=== PATIENT | male | born 2005 | race Caucasian/White ===

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

== ENCOUNTER → 2023-04-21 | Emergency (ER) | payer OTHER ==
--- OUTSIDE RECORDS SUMMARY | 2023-04-21 14:01 | XMS REPORT | Continuity of Care Document ---
Author Name Unknown Address [address] [facility] [address] [place] [address] [facility] thconnect Address [address] [facility] [address] [place] [address] Care Team Providers Care House Worker General Name Role Phone PCP, PATIENT DOES NOT HAVE A Primary Care Physic andrés Unavailable ARAMIS HERNANDEZ Attending Clinician Bernadette harlanilaJERRELL Ojeda Attending Clinician Unavailable Aramis Hernandez MD Attending Clinician ARAMIS HERNANDEZ Admitting Clinician Bernadette vailable Payers Payer Name Policy Type Policy Number Effective Date Expirati on Date Source [employer] [id number] 2022 00:00:00 Allergies, Adverse Reactions, Alerts Allergy Name Allergy Type Status Severity Reaction(s) Onset Date Inactive Date Treating Clinician Comments Source Lidocain e Propensi ty to adverse reaction s Active Itching 07-30 00:00: 00 [facility] LIDOCAIN E DRUG INGREDI Active ITCHING 07-30 00:00: 00 [facility] NO KNOWN ALLERGIE S Drug Class Active [facility] Social History Social Habit Start Date Stop Date Quantity Comments Source Exposure to SARS-CoV-2 (event) 2022-08-09 00:00:00 2022-08-19 14:35:00 Not sure [facility] Tobacco use and exposure 2022-08-19 00:00:00 2022-08-19 00:00:00 Smokeless tobacco non-user [facility] Sex Assigned At 2005 00:00:00 2005 00:00:00 [facility] Smoking Status Start Date Stop Date Source Tobacco smoking consumption unknown [facility] Never smoked tobacco [facility] Vital Signs Vital Name Observation Time Observation Value Comments S sheila Systolic blood pressure 2022-08-19 19:42:00 123 mm[Hg] [facility] Diastolic blood pressure 2022-08-19 19:42:00 65 mm[Hg] [facility] Heart rate 2022-08-19 19:42:00 80 /min [facility] Body temperature 2022-08-19 19:42:00 36.39 Estela [facility] Body height 2022-08-19 19:42:00 190.5 cm [facility] Body weight 2022-08-19 19:42:00 95.119 kg [facility] BMI 2022-08-19 19:42:00 26.21 kg/m2 [facility] Body mass index (BMI) [Percentile] Per age and sex 2022-08-19 19:42:00 84.87 % [facility] Systolic blood pressure 2022-07-30 12:33:00 128 mm[Hg] [facility] Diastolic blood pressure 2022-07-30 12:33:00 73 mm[Hg] [facility] Heart rate 2022-07-30 12:33:00 97 /min [facility] Body temperature 2022-07-30 12:33:00 35.78 Estela [facility] Body height 2022-07-30 12:33:00 190.5 cm [facility] Body weight 2022-07-30 12:33:00 97.523 kg [facility] BMI 2022-07-30 12:33:00 26.87 kg/m2 [facility] Body mass index (BMI) [Percentile] Per age and sex 2022-07-30 12:33:00 88.03 % [facility] Procedures Procedure Date / Time Performed Performing Clinicia n Source XR KNEE 4+ VW RIGHT 2022-07-30 12:44:10 Aramis Hernandez [facility] Encounters Start Date/Time End Date/Time Encounter Type Admission Type Attending [facility] Care Department Encounter ID Source 2022-11-18 15:00:00 2022-11-18 15:00:00 Outpatient ARAMIS CHATMAN [facility] [id number] [facility] 2022-09-30 10:40:00 2022-09-30 10:40:00 Outpatient ARAMIS CHATMAN [facility] [id number] [facility] 2022-09-15 15:15:00 2022-09-15 15:15:00 Outpatient JERRELL BIGGS [facility] [id number] [facility] 2022-08-19 15:00:00 2022-08-19 15:04:05 Outpatient ARAMIS CHATMAN [facility] [id number] [facility] 2022-08-19 15:00:00 2022-08-19 15:04:05 Office Visit Aramis Hernandez [facility] [place] [facility] .[id number] [facility] 2022-08-08 11:55:41 2022-08-08 23:59:00 Outpatient ARAMIS CHATMAN [facility] [id number] [facility] 2022-08-08 11:55:41 2022-08-08 23:59:00 Hospital Encounter Aramis Hernandez [facility] [place] [facility] .[id number] [facility] 2022-08-08 00:00:00 2022-08-08 00:00:00 Telephone Aramis Hernandez [facility] [place] [facility] .[id number] [id number] [facility] 2022-07-30 07:36:15 2022-07-30 23:59:00 Outpatient ARAMIS CHATMAN [facility] [id number] [facility] 2022-07-30 07:36:15 2022-07-30 23:59:00 Hospital Encounter Aramis Hernandez [facility] [place] [facility] [id number] [facility] 2022-07-30 07:50:00 2022-07-30 08:10:20 Office Visit Aramis Hernandez [facility] [place] [facility] [id number] [facility] 2022-07-30 00:00:00 2022-07-30 00:00:00 Letter (Out) Aramis Hernandez [facility] [place] [facility] [id number] [facility]
--- NOTE | 2023-04-21 15:24 | RAD REPORT ---
EXAM DESCRIPTION: RAD - Elbow Left 3 View - 04/21/2023 2:48 pm CLINICAL HISTORY: PAIN COMPARISON: No comparisons TECHNIQUE: Left elbow, 3 views. FINDINGS: No fracture is identified. No elevated posterior fat pad to suggest an effusion. There is no dislocation or periosteal reaction noted. No foreign body or other soft tissue abnormalit y. IMPRESSION: Negative left elbow examination.
--- NOTE | 2023-04-21 15:43 | EDPHYS ---
Physician Documentation [facility] Name: Liu Smith Age: 17 yrs Sex: Male : 2005 Arrival Date: 04/21/2023 Time: 13:58 Bed 18 Private MD: ED Physician Hemanth Esparza HPI: 04/21 14:26 This 17 yrs old Male presents to ER via Ambulatory with complaints of Elbow ec2 Injury - Left. 14:26 Patient arrives today for evaluation of left elbow pain. States that he was at work, ec2 lifting a heavy object and subsequently felt pain in the left elbow. Patient reports no falls or injuries, denies trauma. Patient reports no swelling at the area. . Historical: - Allergies: 14:11 Lidocaine; ll1 - PMHx: 14:11 None; ll1 - PSHx: 14:11 None; ll1 - Immunization history:: Adult Immunizations up to date. - Social history:: Smoking status: Patient/guardian denies using tobacco. ROS: 14:26 Constitutional: as per hpi ec2 Exam: 14:26 Constitutional: GEN: NAD Head: atraumatic Eyes: EOMI Ears: External ears are ec2 normal. CV: regular rate LUNGS: no respiratory distress ABD: non-distended SKIN: no evidence of rashes MSK: no evidence of trauma, left elbow TTP, no significant swelling, no erythema, no warmth, range of motion limited to about 170 degrees, intact distal neurovascular status NEURO: moves all extremities equally Vital Signs: 14:11 BP 130 / 68; Pulse 100; Resp 17; Temp 98.2; Pulse Ox 99% ; Weight 99.79 kg; Height 6 ll1 ft. 2 in. ; Pain 4/10; 14:11 Body Mass Index 28.25 (99.79 kg, 187.96 cm) - Percentile 90.9 % ll1 14:11 Pain Scale: Adult ll1 MDM: 14:26 Data reviewed: vital signs. ED course: Patient arrives today for evaluation of left ec2 elbow pain. Examination remarkable for MSK findings as noted above. Will obtain radiographs of the left elbow, will treat the patient's pain with Toradol.. 14:35 Patient medically screened. ec2 15:38 ED course: Elbow x-ray independently reviewed and interpreted by me, shows no acute ec2 traumatic process. Will discharge home, instructed on [id number] medications. Return precautions given. 04/21 14:16 Order name: Elbow Left 3 View XRAY; Complete Time: 15:38 ec2 04/21 15:41 Order name: Sling; Complete Time: 15:59 ec2 Administered Medications: 15:41 CANCELLED (Physician Discretion): [id number] mg IM once ec2 Disposition Summary: 04/21/23 15:42 Discharge Ordered Notes: Location: Home ec2 Condition: Stable ec2 Diagnosis - Unspecified sprain of left elbow, initial encounter ec2 Followup: ec2 - With: Private Physician - When: - Reason: Re-evaluation by your physician Discharge Instructions: - Discharge Summary Sheet ec2 - Elbow Sprain ec2 Forms: - Work release form ec2 - Medication Reconciliation Form ec2 - Thank You Letter ec2 - Antibiotic Education ec2 - Prescription Opioid Use ec2 - Patient Portal Instructions ec2 - Leadership Thank You Letter ec2 Signatures: Dispatcher [employer] Dede Raman RN RN 1 Hemanth Esparza MD MD ec2 Corrections: (The following items were deleted from the chart) 15:41 14:24 Ketorolac IM 30 mg IM once ordered. ec2 ec2
--- NOTE | 2023-04-21 15:43 | ER ---
Nurse's Notes [facility] Name: Liu Smith Age: 17 yrs Sex: Male : 2005 Arrival Date: 04/21/2023 Time: 13:58 Bed 18 Private MD: Diagnosis: Unspecified sprain of left elbow, initial encounter Presentation: 04/21 14:11 Chief complaint: Patient states: Picked up a bucket this morning and felt a pop L ll1 elbow. Limited ROM and pain since. Coronavirus screen: Client denies travel out of the [place] in the last 14 days. At this time, the client does not indicate any symptoms associated with coronavirus-19. Ebola Screen: Patient denies travel to an Ebola-affected area in the 21 days before illness onset. Initial Sepsis Screen: Does the patient meet any 2 criteria? No. Patient's initial sepsis screen is negative. Does the patient have a suspected source of infection? Yes: Bone or joint infection. Risk Assessment: Do you want to hurt yourself or someone else? Patient reports no desire to harm self or others. Onset of symptoms was April 21, 2023. 14:11 Method Of Arrival: Ambulatory ll1 14:11 Acuity: YOSSI 4 ll1 Triage Assessment: 14:12 General: Appears uncomfortable, Behavior is calm, cooperative, appropriate for age. ll1 Pain: Complains of pain in L elbow. Musculoskeletal: Circulation, motion, and sensation intact. Capillary refill < 3 seconds. Injury Description: Bruise. Historical: - Allergies: 14:11 Lidocaine; ll1 - PMHx: 14:11 None; ll1 - PSHx: 14:11 None; ll1 - Immunization history:: Adult Immunizations up to date. - Social history:: Smoking status: Patient/guardian denies using tobacco. Vital Signs: 14:11 BP 130 / 68; Pulse 100; Resp 17; Temp 98.2; Pulse Ox 99% ; Weight 99.79 kg; Height 6 ll1 ft. 2 in. ; Pain 4/10; 14:11 Body Mass Index 28.25 (99.79 kg, 187.96 cm) - Percentile 90.9 % ll1 14:11 Pain Scale: Adult ll1 ED Course: 14:01 Patient arrived in ED. ra3 14:04 Hemanth Esparza MD is Attending Physician. ec2 14:12 Triage completed. ll1 14:12 Arm band placed on. ll1 14:49 Elbow Left 3 View XRAY In Process Unspecified. EDMS 15:42 Sachin Wilkes, RN is Primary Nurse. bp Administered Medications: 15:41 CANCELLED (Physician Discretion): [id number] mg IM once ec2 Outcome: 15:42 Discharge ordered by MD. ec2 16:11 Patient left the ED. bp Signatures: Dispatcher [employer] EDNE Sachin Wilkes, RN RN Dede Hall RN RN 1 Hemanth Esparza MD MD ec2 Mily Samuels 3
[2023-04-21 18:50] VITALS: BP 130/68; TEMP 98.2; O2SAT 99
== END ==
LOC: ER 13:58
DX: S53.402A Unspecified sprain of left elbow, initial encounter (principal)
CPT/HCPCS: 99281

== ENCOUNTER → 2023-07-10 | Emergency (ER) | payer OTHER, SELFPAY ==
--- OUTSIDE RECORDS SUMMARY | 2023-07-10 00:33 | XMS REPORT | Continuity of Care Document ---
Author Name Unknown Address [address] [facility] [address] [place] [address] [facility] thconnect Address [address] [facility] [address] [place] [address] Care Team Providers Care Pulmonary Function Technologist Name Role Phone PCP, PATIENT DOES NOT HAVE A Primary Care Physic andrés Unavailable ARAMIS HERNANDEZ Attending Clinician Bernadette JERRELL Reyna Attending Clinician Unavailable Aramis Hernandez MD Attending Clinician ARAMIS HERNANDEZ Admitting Clinician Bernadette jose Payers Payer Name Policy Type Policy Number Effective Date Expirati on Date Source [employer] [id number] 2022 00:00:00 Allergies, Adverse Reactions, Alerts Allergy Name Allergy Type Status Severity Reaction(s) Onset Date Inactive Date Treating Clinician Comments Source Lidocain e Propensi ty to adverse reaction s Active Itching 07-30 00:00: 00 [facility] LIDOCAIN E DRUG INGREDI Active ITCHING 07-30 00:00: 00 [facility] NO KNOWN ALLERGIE S Drug Class Active [facility] Social History Social Habit Start Date Stop Date Quantity Comments Source Exposure to SARS-CoV-2 (event) 2022-08-09 00:00:00 2022-08-19 14:35:00 Not sure [facility] Tobacco use and exposure 2022-08-19 00:00:00 2022-08-19 00:00:00 Smokeless tobacco non-user [facility] Sex Assigned At 2005 00:00:00 2005 00:00:00 [facility] Smoking Status Start Date Stop Date Source Tobacco smoking consumption unknown [facility] Never smoked tobacco [facility] Vital Signs Vital Name Observation Time Observation Value Ileana sosa Systolic blood pressure 2022-08-19 19:42:00 123 mm[Hg] [facility] Diastolic blood pressure 2022-08-19 19:42:00 65 mm[Hg] [facility] Heart rate 2022-08-19 19:42:00 80 /min [facility] Body temperature 2022-08-19 19:42:00 36.39 Estela [facility] Body height 2022-08-19 19:42:00 190.5 cm [facility] Body weight 2022-08-19 19:42:00 95.119 kg [facility] BMI 2022-08-19 19:42:00 26.21 kg/m2 [facility] Body mass index (BMI) [Percentile] Per age and sex 2022-08-19 19:42:00 84.87 % [facility] Systolic blood pressure 2022-07-30 12:33:00 128 mm[Hg] [facility] Diastolic blood pressure 2022-07-30 12:33:00 73 mm[Hg] [facility] Heart rate 2022-07-30 12:33:00 97 /min [facility] Body temperature 2022-07-30 12:33:00 35.78 Estela [facility] Body height 2022-07-30 12:33:00 190.5 cm [facility] Body weight 2022-07-30 12:33:00 97.523 kg [facility] BMI 2022-07-30 12:33:00 26.87 kg/m2 [facility] Body mass index (BMI) [Percentile] Per age and sex 2022-07-30 12:33:00 88.03 % [facility] Procedures Procedure Date / Time Performed Performing Clinicia n Source XR KNEE 4+ VW RIGHT 2022-07-30 12:44:10 Aramis Hernandez [facility] Encounters Start Date/Time End Date/Time Encounter Type Admission Type Attending [facility] Facility Care Department Encounter ID Source 2022-11-18 15:00:00 2022-11-18 15:00:00 Outpatient ARAMIS CHATMAN [facility] [id number] [facility] 2022-09-30 10:40:00 2022-09-30 10:40:00 Outpatient ARAMIS CHATMAN [facility] [id number] [facility] 2022-09-15 15:15:00 2022-09-15 15:15:00 Outpatient JERRELL BIGGS [facility] [id number] [facility] 2022-08-19 15:00:00 2022-08-19 15:04:05 Outpatient ARAMIS CHATMAN [facility] [id number] [facility] 2022-08-19 15:00:00 2022-08-19 15:04:05 Office Visit Aramis Hernandez [facility] [place] [facility] [id number] [id number] [id number] [id number] [facility] 2022-08-08 11:55:41 2022-08-08 23:59:00 Outpatient ARAMIS CHATMAN [facility] [id number] [facility] 2022-08-08 11:55:41 2022-08-08 23:59:00 Hospital Encounter Aramis Hernandez [facility] [place] [facility] .2.840.114 [id number] [id number] [id number] [facility] 2022-08-08 00:00:00 2022-08-08 00:00:00 Telephone Aramis Hernandez [facility] [place] [facility] 2.840.114 [id number] [id number] [id number] [facility] 2022-07-30 07:36:15 2022-07-30 23:59:00 Outpatient R ARAMIS HERNANDEZ [facility] [id number] [facility] 2022-07-30 07:36:15 2022-07-30 23:59:00 Hospital Encounter Aramis Hernandez [facility] [place] [facility] [id number] [id number] [id number] [id number] [facility] 2022-07-30 07:50:00 2022-07-30 08:10:20 Office Visit Aramis Hernandez [facility] [place] [facility] 1..840.114 350.1.13.10 [id number] [id number] [facility] 2022-07-30 00:00:00 2022-07-30 00:00:00 Letter (Out) Aramis Hernandez [facility] [place] [facility] 1..840.114 350.1.13.10 [id number] [id number] [facility]
--- NOTE | 2023-07-10 01:39 | EDPHYS ---
Physician Documentation [facility] Name: Liu Smith Age: 17 yrs Sex: Male : 2005 Arrival Date: 07/10/2023 Time: 00:13 Bed 8 Private MD: ED Physician London Knapp HPI: 07/09 00:36 This 17 yrs old Male presents to ER via Unassigned with complaints of Chest Tightness, ms3 Sore Throat, Headache. 00:36 17-year-old male with no past medical history presents to the emergency department for ms3 chest tightness, shortness of breath that began at 7 PM. Patient states his discomfort is a 6/10. Patient denies any alleviating or inciting factors.. Historical: - Allergies: 00:32 Lidocaine; vc1 - Home Meds: 00:32 None [Active]; vc1 - PMHx: 00:32 None; vc1 - PSHx: 00:32 None; vc1 - Immunization history:: Client reports receiving the 2nd dose of the Covid vaccine. - Social history:: Smoking status: Patient denies any tobacco usage or history of. ROS: 00:36 Constitutional: Negative for fever, and chills. Neck: Negative for injury, pain, and ms3 swelling, 00:36 Abdomen/GI: Negative for abdominal pain, nausea, vomiting, diarrhea, and constipation, 00:36 MS/Extremity: Negative for injury and deformity, Skin: Negative for injury, rash, and discoloration, 00:36 Cardiovascular: Positive for chest pain, 00:36 Respiratory: Positive for shortness of breath, Exam: 00:36 Constitutional: This is a well developed, well nourished patient who is awake, alert, ms3 and in no acute distress. Head/Face: Normocephalic, atraumatic. Neck: Trachea midline, no cervical lymphadenopathy. Supple, full range of motion without nuchal rigidity, or vertebral point tenderness. No Meningismus. Chest/axilla: Normal chest wall appearance and motion. Nontender with no deformity. Cardiovascular: Regular rate and rhythm with a normal S1 and S2. No gallops, murmurs, or rubs. Normal PMI, no JVD. No pulse deficits. Respiratory: Lungs have equal breath sounds bilaterally, clear to auscultation and percussion. No rales, rhonchi or wheezes noted. No increased work of breathing, no retractions or nasal flaring. Abdomen/GI: Soft, non-tender, with normal bowel sounds. No distension or tympany. No guarding or rebound. No evidence of tenderness throughout. Skin: Warm, dry with normal turgor. Normal color with no rashes, no lesions, and no evidence of cellulitis. MS/ Extremity: Pulses equal, no cyanosis. Neurovascular intact. Full, normal range of motion. 00:36 ECG was reviewed by the Attending Physician. Vital Signs: 01:00 BP 134 / 73; Pulse 92; Resp 16; Pulse Ox 98% on R/A; km8 [place] Coma Score: 00:32 Eye Response: spontaneous(4). Motor Response: obeys commands(6). Verbal Response: km8 oriented(5). Total: 15. MDM: 00:27 Patient medically screened. ms3 01:12 Independent interpretation of the following test(s) in the Emergency Department X-Ray: ms3 My interpretation is CXR images reviewed by me do not reveal PNA or PTX. 01:39 Differential diagnosis: abnormal EKG, anxiety, chest wall pain. Data reviewed: vital ms3 signs, nurses notes, EKG, radiologic studies, and as a result, I will discharge patient. Counseling: I had a detailed discussion with the patient and/or guardian regarding the historical points, exam findings, and any diagnostic results supporting the discharge/admit diagnosis, radiology results, the need for outpatient follow up, to return to the emergency department if symptoms worsen or persist or if there are any questions or concerns that arise at home. Special discussion: Based on the patient's history, exam, and Dx evaluation, there is no indication for emergent intervention or inpatient Tx. It is understood by the patient/guardian that if the Sx's persist or worsen they need to return immediately for re-evaluation. ED course: Patient symptoms improved, patient is alert and oriented x 4, no apparent distress, nontoxic-appearing, ambulatory in the emergency department. Patient to follow-up with primary care physician in 2 to 3 days. Patient understands and agrees with plan. All questions were answered. Return precautions discussed include worsening symptoms, or any other concerns. 07/09 00:28 Order name: Chest Pa And Lat (2 Views) XRAY ms3 07/09 00:28 Order name: EKG; Complete Time: 00:28 ms3 07/09 00:28 Order name: EKG - Nurse/Tech; Complete Time: 00:39 ms3 EC:36 Rate is 97 beats/min. Rhythm is regular. QRS [place] is Normal. SD interval is normal. QRS ms3 interval is normal. Clinical impression: Normal ECG. Interpreted by me. Reviewed by me. Administered Medications: No medications were administered Disposition Summary: 07/10/23 01:38 Discharge Ordered Notes: Location: Home ms3 Condition: Stable ms3 Diagnosis - Chest pain, unspecified ms3 - Shortness of breath ms3 Followup: ms3 - With: Guerrero Spencer DO - When: 2 - 3 days - Reason: Recheck today's complaints Discharge Instructions: - Discharge Summary Sheet ms3 - Nonspecific Chest Pain, Adult ms3 - Shortness of Breath, Adult ms3 Forms: - Medication Reconciliation Form ms3 - Thank You Letter ms3 - Antibiotic Education ms3 - Prescription Opioid Use ms3 - Patient Portal Instructions ms3 - Leadership Thank You Letter ms3 Signatures: Dispatcher [employer] EDLondon Mann DO DO ms3 Nighat Edgar RN RN vc1 Corrections: (The following items were deleted from the chart) 01:31 00:36 The history from the nurse's notes was reviewed and I agree with what is vc1 documented. ms3 01:31 00:32 Immunization history: Client reports receiving the 2nd dose of the Covid vaccine, vc1 vc1 01:31 00:32 Social history: Smoking status: Patient denies any tobacco usage or history of. vc1 vc1
--- NOTE | 2023-07-10 01:39 | ER ---
Nurse's Notes [facility] Name: Liu Smith Age: 17 yrs Sex: Male : 2005 Arrival Date: 07/10/2023 Time: 00:13 Bed 8 Private MD: Diagnosis: Chest pain, unspecified;Shortness of breath Presentation: 07/09 00:26 Chief complaint: Patient states: Been having some chest tightness and SOB since around vc1 7 pm with some arm numbness. It was sharp at first now it is more of a discomfort. 00:26 Coronavirus screen: Vaccine status: Patient reports being unvaccinated. Client denies vc1 travel out of the [place] in the last 14 days. At this time, the client does not indicate any symptoms associated with coronavirus-19. Ebola Screen: Patient negative for fever greater than or equal to 101.5 degrees Fahrenheit, and additional compatible Ebola Virus Disease symptoms Patient denies exposure to infectious person. Patient denies travel to an Ebola-affected area in the 21 days before illness onset. No symptoms or risks identified at this time. Initial Sepsis Screen: Does the patient meet any 2 criteria? No. Patient's initial sepsis screen is negative. Does the patient have a suspected source of infection? No. Patient's initial sepsis screen is negative. Risk Assessment: Do you want to hurt yourself or someone else? Patient reports no desire to harm self or others. Onset of symptoms was July 09, 2023 at 19:00. 00:26 Method Of Arrival: Ambulatory vc1 00:26 Acuity: YOSSI 3 vc1 Historical: - Allergies: 00:32 Lidocaine; vc1 - Home Meds: 00:32 None [Active]; vc1 - PMHx: 00:32 None; vc1 - PSHx: 00:32 None; vc1 - Immunization history:: Client reports receiving the 2nd dose of the Covid vaccine. - Social history:: Smoking status: Patient denies any tobacco usage or history of. Screenin:32 [facility] ED Fall Risk Assessment (Adult) History of falling in the last 3 months, km8 including since admission No falls in past 3 months (0 pts) Confusion or Disorientation No (0 pts) Intoxicated or Sedated No (0 pts) Impaired Gait No (0 pts) Mobility Assist Device Used No (0 pt) Altered Elimination No (0 pt) Score/Fall Risk Level 0 - 2 = Low Risk Oriented to surroundings, Maintained a safe environment, Educated pt \T\ family on fall prevention, incl call for assistance when getting out of bed, Assessed \T\ reinforced patient's understanding of fall precautions. Abuse screen: Denies threats or abuse. Denies injuries from another. Nutritional screening: No deficits noted. Tuberculosis screening: No symptoms or risk factors identified. Assessment: 00:32 General: Appears in no apparent distress. Behavior is calm, cooperative, appropriate km8 for age. Pain: Complains of pain in xiphoid area Pain does not radiate. Pain currently is 6 out of 10 on a pain scale. Quality of pain is described as heavy, pressure, Pain began 1 hour ago. Neuro: Level of Consciousness is awake, alert, obeys commands, Oriented to person, place, time, situation. Cardiovascular: Reports chest pain, Patient's skin is warm and dry. Chest pain is described as mild, quality is heaviness, pressure, is located in anterior chest wall began 1 hour prior to arrival. Respiratory: Airway is patent Respiratory effort is even, unlabored, Respiratory pattern is regular, symmetrical. GI: No signs and/or symptoms were reported involving the gastrointestinal system. : No signs and/or symptoms were reported regarding the genitourinary system. EENT: No signs and/or symptoms were reported regarding the EENT system. Derm: No signs and/or symptoms reported regarding the dermatologic system. Skin is intact, is healthy with good turgor, Skin is dry, Skin is pink, warm \T\ dry. normal, Skin temperature is warm. Musculoskeletal: No signs and/or symptoms reported regarding the musculoskeletal system. Range of motion: intact in all extremities. 01:16 Reassessment: Patient appears in no apparent distress at this time. No changes from km8 previously documented assessment. Patient and/or family updated on plan of care and expected duration. Pain level reassessed. Patient is alert, oriented x 3, equal unlabored respirations, skin warm/dry/pink. Vital Signs: 01:00 BP 134 / 73; Pulse 92; Resp 16; Pulse Ox 98% on R/A; km8 [facility] Coma Score: 00:32 Eye Response: spontaneous(4). Motor Response: obeys commands(6). Verbal Response: km8 oriented(5). Total: 15. ED Course: 00:17 Patient arrived in ED. gm2 00:18 London Knapp DO is Attending Physician. ms3 00:32 Victorina Hooper, RN is Primary Nurse. km8 00:32 Patient has correct armband on for positive identification. Placed in gown. Bed in low km8 position. Call light in reach. Side rails up X 1. Pulse ox on. NIBP on. 00:32 Arm band placed on left wrist. vc1 00:32 Patient maintains SpO2 saturation greater than 95% on room air. km8 00:39 EKG done, by electronic systems technician. reviewed by London Knapp DO. oe 01:09 Chest Pa And Lat (2 Views) XRAY In Process Unspecified. EDMS 01:28 Triage completed. vc1 01:38 Guerrero Spencer DO is Referral Physician. ms3 01:46 Provided Education on: d/c teaching. km8 01:46 No provider procedures requiring assistance completed. Patient did not have IV access km8 during this emergency room visit. Administered Medications: No medications were administered Medication: 00:26 VIS not applicable for this client. vc1 Outcome: 01:38 Discharge ordered by MD. ms3 01:46 Discharged to home ambulatory, with significant other, km8 01:46 Condition: good 01:46 Discharge instructions given to patient, Instructed on discharge instructions, follow up and referral plans. Demonstrated understanding of instructions, follow-up care, 01:47 Patient left the ED. km8 Signatures: Dispatcher [employer] EDKS Tony Ruelas oe London Knapp DO DO ms3 Nighat Edgar, RN RN vc1 Lillian Avitia gm2 Victorina Hooper, RN RN km8 Corrections: (The following items were deleted from the chart) 01:31 00:36 The history from the nurse's notes was reviewed and I agree with what is vc1 documented. ms3 : 00:32 Immunization history: Client reports receiving the 2nd dose of the Covid vaccine, vc1 vc1 : 00:32 Social history: Smoking status: Patient denies any tobacco usage or history of. vc1 vc1
[2023-07-10 03:22] VITALS: BP 134/73; O2SAT 98
--- NOTE | 2023-07-11 11:03 | RAD REPORT ---
EXAM DESCRIPTION: RAD - Chest Pa And Lat (2 Views) - 07/10/2023 1:07 am CLINICAL HISTORY: CHEST PAIN TECHNIQUE: Frontal and lateral views of the chest. COMPARISON: No relevant prior studies available. FINDINGS: Lungs: Unremarkable. No consolidation. Pleural space: Unremarkable. No pneumothorax. Heart: Unremarkable. No cardiomegaly. Mediastinum: Unremarkable. Normal mediastinal contour. Bones/joints: Unremarkable. No acute fracture. IMPRESSION: No acute disease. Electronically signed by: Devyn Mason MD 07/10/2023 01:10 AM WEIGHT CALLER Due to temporary technical issues with the PACS/Fluency reporting system, reports are being signed by the in house radiologist without review as a courtesy to ensure prompt reporting. The interpreting r adiologist is fully responsible for the content of the report.
== END ==
LOC: ER 00:13
DX: R07.89 Other chest pain (principal); R06.02 Shortness of breath; Z88.6 Allergy status to analgesic agent
CPT/HCPCS: 71046; 99284